=== PATIENT | female | born 1950 | race Caucasian/White ===

== ENCOUNTER 2017-11-03 14:31 | Day surgery (SDC) | payer OTHER ==
[~2017-11-03] VITALS: Ht 149.9 cm; Wt 86.1 kg
[~2017-11-03 14:31] MED LIST: ADVIL,NUPRIN,M200 MG PO; BUSPIRONE HCL10 MG PO; CIPRO500 MG PO; EFFEXOR75 MG PO; Ecotrin PO; FLONASE16 G1 BOTH NARES; GABAPENTIN300 MG PO; HYDROCHLOROTH12.5 M3 PO; HYDROCHLOROTHIA25 MG PO; LO-DOSE ASPIRIN81 M2 PO; OMEPRAZOLE20 MG PO; PANTOPRAZOLE SO40 MG PO; PRAVASTATIN SOD20 MG PO; PROAIR HFA8.5 GM IH; SUCRALFATE1 GM PO; SYMBICORT60 INHALAT IH; TRAZODONE HCL50 MG PO; VENLAFAXINE HCL75 MG PO; ZOLOFT100 MG PO
[2017-11-03 20:20] VITALS: BP 114/67
[2017-11-04] VITALS (7 sets, daily range): BP systolic 110–155; BP diastolic 57–74
[2017-11-04 01:00] LABS: HEMATOCRIT 39.2 % (36.0-46.0); HEMOGLOBIN 13.5 G/DL (11.9-15.5); MCHC 34.4 G/DL (30.0-36.0); MCV 87.1 FL (83-99); PLATELET COUNT 290 K/uL (156-360); RBC DIS.WIDTH-CV 12.5 % (11.8-14.6); RBC DIS.WIDTH-SD 39.7 % (39-53); WHITE BLOOD COUNT 9.1 K/uL (4.1-10.2)
[2017-11-04 01:12] LABS: INTER. NORMALIZED RATIO 1.1
[2017-11-04 01:15] LABS: PTT 30.4 SEC (25-37)
[2017-11-05 04:45] VITALS: BP 122/82
[2017-11-05 06:24] LABS: HEMATOCRIT 41.8 % (36.0-46.0); HEMOGLOBIN 13.9 G/DL (11.9-15.5); MCH 29.5 PG (29.0-34.0); MCHC 33.3 G/DL (30.0-36.0); MCV 88.7 FL (83-99); PLATELET COUNT 291 K/uL (156-360); RBC DIS.WIDTH-CV 12.6 % (11.8-14.6); RED BLOOD COUNT 4.71 M/uL (3.80-5.20); WHITE BLOOD COUNT 5.4 K/uL (4.1-10.2)
[2017-11-05 07:57] VITALS: BP 126/60
[2017-11-05 11:43] VITALS: BP 121/59
[2017-11-05 17:25] VITALS: BP 143/67
[2017-11-05 20:01] VITALS: BP 111/57
[2017-11-06] VITALS: BP 116/64
[2017-11-06 04:06] VITALS: BP 145/68
[2017-11-06 07:46] VITALS: BP 126/62
[2017-11-06 12:06] VITALS: BP 145/63
[2017-11-06 16:20] VITALS: BP 128/58
[2017-11-06 20:13] VITALS: BP 121/65
[2017-11-07 00:36] VITALS: BP 121/54
[2017-11-07 04:34] VITALS: BP 103/57
[2017-11-07 07:30] VITALS: BP 105/56
== END 2017-11-07 16:25 | disposition short-term general hospital (02) ==
LOC: CATH 14:31 → OPR 16:30 → ENRESERV 18:00 → 2SOUTH 18:11 → 4EAST 18:11 → 2SOUTH 18:11 → ENRESERV 19:22 → 4EAST 20:02
PROVIDERS: Internal Medicine Cardiovascular Disease
DX: I25.119 Atherosclerotic heart disease of native coronary artery with unspecified angina pectoris (principal); I10 Essential (primary) hypertension; E78.5 Hyperlipidemia, unspecified; R73.03 Prediabetes; E66.01 Morbid (severe) obesity due to excess calories; Z68.39 Body mass index [BMI] 39.0-39.9, adult; Z82.49 Family history of ischemic heart disease and other diseases of the circulatory system; G47.30 Sleep apnea, unspecified; Z88.0 Allergy status to penicillin; Z79.82 Long term (current) use of aspirin
CPT/HCPCS: 85027; 85610; 85730; C1769; C1887; C1894; G0378; J1200; J1644; J2250; J2270